=== PATIENT | male | born 1960 | race Two or more races ===

== ENCOUNTER 2024-11-18 07:12 | Day surgery (SDC) | payer OTHER ==
[2024-11-18] MEDS ORDERED: MIDAZOLAM HCL 2 MG/2 ML VIAL IV ONE (09:30)
[2024-11-18] MEDS ORDERED: fentaNYL CITRATE 50 MCG/ML AMPUL IV PUSH ONE (09:30)
[2024-11-18] MEDS ORDERED: DIPHENHYDRAMINE HCL 50 MG/ML VIAL 1ML IV ONE (09:30)
== END 2024-11-18 11:30 | disposition home or self-care (01) ==
LOC: AMB-ENDOS 07:12
PROVIDERS: ATTEND Surgery
DX: D12.0 Benign neoplasm of cecum (principal); K57.30 Diverticulosis of large intestine without perforation or abscess without bleeding; K63.5 Polyp of colon